=== PATIENT | male | born 1985 | race Caucasian/White ===

== ENCOUNTER 2023-05-01 18:19 | Emergency (ER) | payer BC, SELFPAY ==
[2023-05-01 18:32] VITALS: BP 158/79; PULSE 100; RESP 18; TEMP 37.1; O2SAT 99; BMI 23.0
--- NOTE | 2023-05-01 18:38 | ED.WOUNDLAC ---
HPI - Wound/Laceration General Time Seen by Provider: 18:38 Date Seen: 05/01/23 Chief Complaint: Laceration/Wound Stated Complaint: Laceration Right leg Time Seen by Provider: 05/01/23 18:46 Source: patient and RN notes reviewed Mode of arrival: ambulatory Limitations: no limitations History of Present Illness HPI narrative: Volodymyr is a very pleasant 37-year-old gentleman previously healthy with a tetanus in 2017 who comes to the emergency room with an injury to his right lower leg. Volodymyr was assisting a friend in putting up pollen wean decorations and fell out of a tree approximately 2-3 feet. He denies any injury and is not complaining of head or neck pain. In fact he got back up in the tree and once in the tree friends noticed that he had blood on his leg. He then found that he had a large laceration to his right lateral lower leg. He assumes that it was a stick that penetrated his leg. He notes that since he has been laying here he is now getting more discomfort in the area. He denies numbness or tingling distally and is able to move his ankle and toes without problem. Again, patient denies any injury from the initial fall. No headache, neck pain, chest pain, difficulty breathing. Denies any other injury at this time. Related Data Home Medications Medication Instructions Recorded Confirmed No Known Home Medications 05/01/23 05/01/23 Allergies Allergy/AdvReac Type Severity Reaction Status Date / Time No Known Drug Allergies Allergy Verified 05/01/23 18:33 [facility] Medical History No significant past medical history Surgical History No significant past surgical history Social History Smoking Status: Never smoker Second hand tobacco smoke exposure: No How often do you have a drink containing alcohol: never How often do you have six or more drinks on one occasion: Never AUDIT-C Alcohol total score: 0 Non-prescribed substance use: denies use Exam Narrative: Exam Narrative: Alert and oriented. Not in any acute distress. Moving his neck without difficulty. Head is atraumatic. No respiratory distress. Examination of the right leg shows a gaping laceration measuring approximately 4.5 cm. This is over the lateral mid aspect of the right lower leg. This does compromise epidermis, dermis and subcutaneous tissue. Muscular tissue is visualized. I do not note any foreign bodies. The wound however is very jagged. Superiorly in this area he does have swelling and tenderness noted. Distally he is able to move his ankle without difficulty and sensation is fully intact. Const: Vital Signs, click to edit/add: Vital Signs - 24 hr 05/01/23 18:32 05/01/23 18:53 05/01/23 20:09 Temperature 98.8 F 98.8 F Pulse Rate [Right Dorsalis Pedis] 74 Pulse Rate [Right Pulse Oximeter] 100 Respiratory Rate 18 Blood Pressure [Ri ght Upper Arm] 158/79 H Pulse Oximetry 99 Oxygen Delivery Me thod Room Air Documenting provider has reviewed patient's vital signs: yes Course Course ED Course: At this time we have an obvious laceration but there does not appear to be any underlying nerve or muscular damage. However, I do have to have concerns regarding retained foreign body and I am sending patient over for x-ray. Of also applying let to the wound and will irrigate with a 1000 mL. Reevaluation(s) Reevaluation #1: Patient noted to have likely penetrating injury with stick. There was no compromise of patient's pant leg so likely this was when he fell. He did not notice it at 1st. Only when others noticed there was blood on his pants. The wound was quite jagged but no foreign bodies were noted. I did explore the wound superiorly in did not note any foreign body. X-ray did not show any foreign body. A total of 10 sutures in all were placed. Reevaluation #2: Again, patient continues to deny any other injury. Short fall out of the tree he had no injury and was climbing the tree once again when he noticed the blood on his leg pants. Vital Signs Vital signs: Initial Vital Signs Temperature 98.8 F 05/01/23 18:32 Temperature Source Temporal Artery Scan 05/01/23 18:32 Pulse Rate 100 05/01/23 18:32 Respiratory Rate 18 05/01/23 18:32 Blood Pressure 158/79 H 05/01/23 18:32 Blood Pressure Mean 105 05/01/23 18:32 Blood Pressure Position Sitting 05/01/23 18:32 Pulse Oximetry 99 10/22/23 18:32 Oxygen Delivery Method Room Air 05/01/23 18:32 Vital Signs Temperature 98.8 F 05/01/23 18:32 Pulse Rate 100 05/01/23 18:32 Respiratory Rate 18 05/01/23 18:32 Blood Pressure 158/79 H 05/01/23 18:32 Pulse Oximetry 99 05/01/23 18:32 Oxygen Delivery Method Room Air 05/01/23 18:32 Temperature 98.8 F 05/01/23 20:09 Pulse Rate 74 05/01/23 18:53 Respiratory Rate 18 05/01/23 18:32 Blood Pressure 158/79 H 05/01/23 18:32 Pulse Oximetry 99 05/01/23 18:32 Oxygen Delivery Method Room Air 05/01/23 18:32 MDM - Wound/Laceration MDM Narrative Medical decision making narrative: 1. Laceration repair-patient noted to have unknown penetrating injury to the right leg. We are suspecting that this was a tree branch. However, I do not see any evidence of debris in the wound. We did palpate and explore the wound. Irrigated extensively. Patient did have this wound repaired in 2 layers. I did have to revise some of the wound inferiorly as the wound was quite may serrated. Vertical mattress sutures were used in the repair of this patient's wound. He is at higher risk for infection and therefore will use Augmentin 875 p.o. b.i.d. for [address] him on crutches for 2 days. As he has been here he is getting more more sore. Fortunately all his range of motion and sensation was intact upon arrival including Ruth flexion eversion at the ankle. Ibuprofen 800 mg was given here in the emergency room for discomfort. Suture removal will be in 10 days time. Given how gaping this wound was, I would advise a check at the clinic or urgent care. They may want to leave the middle sutures in for an extended period. I would not like the sutures to be removed if there is any evidence of dehiscence. Patient is also instructed on returning for any signs of infection including fever, purulent drainage, increasing redness red streaks up his leg. He does understand that. 2. Disposition-home at this time. Return to the ER for worsening symptoms. Imaging Data Right tib-fib x-ray: Attestation: I have reviewed the pertinent imaging results. My impression: No obvious foreign body. Radiologist's impression: Bones: Alignment is normal. No displaced fractures or bone lesions. Joint spaces: Unremarkable. Soft tissues: Subtle focal subcutaneous emphysema along the lateral calf. No radiopaque foreign bodies. Discharge Plan Discharge Clinical Impression: Laceration Patient Disposition: Home, Self-Care Condition: Improved Additional Instructions: Keep wound clean and dry for 24 hours. Thereafter you may shower but do not swim, soak in a bathtub except trip. Start Augmentin tonight which will be available in our [employer] vending machine. Suture removal in 10 days time. Return to the emergency room for fever, worsening symptoms and as needed. Crutches. Prescriptions: No Action No Known Home Medications Follow Up/Referrals: Provider,Not a Local [Primary Care Provider] - Stand Alone Forms: [facility] Info Instructions Procedures Laceration Laceration 1: Pre procedure diagnosis: Laceration Post procedure diagnosis: Duration repair Name of person performing procedure: Minna Valente Site: lower extremity Side (If applicable): right Size (cm): 4.5 Description: irregular and contaminated Local Anesthetic: lidocaine 1%, with epi and other anesthetic Amount of anesthesia used (mL): 4 Pre-repair: wound explored, irrigated extensively, deep structures intact and wound margins revised Skin layer closed with: nylon Size (cm): 4-0 Number of sutures: 6 Technique: other (Vertical mattress) Subcutaneous layer closed with: Vicryl Size: 4-0 Number of sutures: 4 Technique: simple, interrupted Estimated blood loss (if any): less than 5mls Conclusion: patient tolerated procedure
--- NOTE | 2023-05-01 18:46 | CRLHL7_ITS ---
For Patients: As a result of the Century Cures Act, medical imaging exams and procedure reports are released immediately into your electronic medical record. You may view this report before your referring provider. If you have questions, please contact your health care provider. Indication: Trauma. Technique: Right tibia/fibula, 2 views. Comparison: None. Findings/Impression: Bones: Alignment is normal. No displaced fractures or bone lesions. Joint spaces: Unremarkable. Soft tissues: Subtle focal subcutaneous emphysema along the lateral calf. No radiopaque foreign bodies. Dictated by Evan Billy MD @ 05/01/2023 8:13:28 PM (Electronically Signed)
[2023-05-01 18:53] VITALS: PULSE 74
[2023-05-01] MEDS: LIDOCAINE/EPINEP/TETRACAINE 3 ML GEL..ML. TOPICAL (19:12)
[2023-05-01 20:09] VITALS: TEMP 37.1
[2023-05-01] MEDS: IBUPROFEN 400 MG TABLET 800 MG PO (20:09)
[2023-05-01 21:10] VITALS: BP 125/74; PULSE 89; RESP 18; TEMP 36.7; O2SAT 99
[2023-05-01 21:11] VITALS: BP 125/74; PULSE 89; RESP 18; TEMP 36.7
== END 2023-05-01 21:13 | disposition home or self-care (01) ==
PROVIDERS: Emergency Provider Family Medicine
DX: S81.811A Laceration without foreign body, right lower leg, initial encounter (principal); W14.XXXA Fall from tree, initial encounter
CPT/HCPCS: 12002; 73590; 99283; 99284; A9270